=== PATIENT | male | born 1985 | race Caucasian/White ===

== ENCOUNTER 2018-12-15 15:35 | Emergency (ER) | payer MEDICAID, OTHER ==
[~2018-12-15] VITALS: Ht 172.7 cm; Wt 63.5 kg
--- NOTE | 2018-12-15 16:42 | NUR ---
Patient discharged to home in stable conditon. Written and verbal after care instructions given. Patient verbalizes understanding of instructions.
[2018-12-15 16:43] VITALS: BP 107/76
== END 2018-12-15 16:43 | disposition home or self-care (01) ==
LOC: ER 15:35
DX: S60.410A Abrasion of right index finger, initial encounter (principal); L08.9 Local infection of the skin and subcutaneous tissue, unspecified; X58.XXXA Exposure to other specified factors, initial encounter; Y93.89 Activity, other specified; Y92.89 Other specified places as the place of occurrence of the external cause; Y99.8 Other external cause status
CPT/HCPCS: A4663

== ENCOUNTER 2023-07-30 02:59 | Emergency (ER) | payer OTHER | END 2023-07-30 04:22 | disposition left against medical advice (07) | LOC: ER 03:13 | DX: Z53.21 Procedure and treatment not carried out due to patient leaving prior to being seen by health care provider (principal) ==

== ENCOUNTER 2024-12-01 11:03 | Emergency (ER) | payer OTHER ==
[~2024-12-01] VITALS: Ht 170.2 cm; Wt 65.8 kg
[2024-12-01] MEDS: IV NORMAL SALINE 1000 ML BAG IV ONE (11:25)
[2024-12-01] MEDS ORDERED: ONDANSETRON 4 MG/2 ML VIAL ONE (11:26)
[2024-12-01] MEDS: ONDANSETRON 4 MG/2 ML VIAL IV ONE (11:27)
[2024-12-01 11:36] LABS: BASOPHILS # (AUTO) 0.1 K/UL (0.0-0.2); BASOPHILS % (AUTO) 0.4 % (0.0-2.0); EOSINOPHILS # (AUTO) 0.1 K/uL (0.0-0.7); EOSINOPHILS % (AUTO) 0.8 % (0.0-7.0); HEMATOCRIT 42.1 % (36.7-47.1); HEMOGLOBIN 14.3 g/dL (12.5-16.3); LYMPHOCYTES # (AUTO) 1.3 K/uL (0.8-4.8); LYMPHOCYTES % (AUTO) 9.6 % (20.5-51.5); MEAN CORPUSCULAR HEMOGLOBIN 29.5 uug (23.8-33.4); MEAN CORPUSCULAR HGB CONC 34 g/dL (32.5-36.3); MEAN CORPUSCULAR VOLUME 86.7 fL (73.0-96.2); MONOCYTES # (AUTO) 0.7 K/uL (0.1-1.30); MONOCYTES % (AUTO) 5.3 % (0.0-11.0); NEUTROPHILS # (AUTO) 11.4 K/uL (1.8-8.9); NEUTROPHILS % (AUTO) 83.9 % (38.5-71.5); PLATELET COUNT (AUTO) 301 K/uL (152-348); RED BLOOD CELL COUNT(AUTO) 4.86 MIL/uL (4.06-5.63); RED CELL DISTRIBUTION WIDTH 12.8 % (12.1-16.2); WHITE BLOOD COUNT (AUTO) 13.6 K/uL (3.6-10.2)
[2024-12-01 11:38] LABS: DIFFERENTIAL COMMENT 1
[2024-12-01] MEDS ORDERED: ONDA4TAB5 PO (11:40)
[2024-12-01] MEDS ORDERED: FAMO-132 PO (11:40)
[2024-12-01 11:41] LABS: CALCIUM 9.2 mg/dL (8.5-10.1); POTASSIUM 3.3 mmol/L (3.5-5.1)
[2024-12-01 11:47] LABS: ALBUMIN 3.5 g/dL (3.4-5.0); BILIRUBIN,DIRECT 0.2 mg/dL (0.0-0.2); BILIRUBIN,TOTAL 0.6 mg/dL (0.2-1.0); TOTAL PROTEIN, SERUM 7.4 g/dL (6.4-8.2)
[2024-12-01 12:22] VITALS: BP 149/66; O2SAT 98
== END 2024-12-01 12:24 | disposition home or self-care (01) ==
LOC: ER 11:03
DX: R10.9 Unspecified abdominal pain (principal); R11.2 Nausea with vomiting, unspecified
CPT/HCPCS: 99283; 96374; 96361; 80076; 80048; 83690; 85025; 36415; J2405; J7040; A4606; A4663

== ENCOUNTER 2024-12-06 15:05 | Emergency (ER) | payer OTHER ==
[~2024-12-06] VITALS: Ht 170.2 cm; Wt 65.8 kg
[~2024-12-06 15:05] MED LIST: FAMO-132 PO; ONDA4TAB5 PO
[2024-12-06] MEDS ORDERED: ACET1TAB23 PO (16:40)
[2024-12-06] MEDS ORDERED: SULF1TAB48 PO (16:40)
[2024-12-06] MEDS ORDERED: CEPH500C2 PO (16:40)
[2024-12-06] MEDS ORDERED: SUMA100T PO (16:40)
[2024-12-06] MEDS ORDERED: ONDA4TAB5 PO (16:40)
[2024-12-06] MEDS ORDERED: NEOMY/BACITRA/POLYMYXIN B OINT UD PACKET TP ONE (16:41)
[2024-12-06 16:57] VITALS: BP 116/86; TEMP 98.1; O2SAT 99
== END 2024-12-06 16:58 | disposition home or self-care (01) ==
LOC: ER 15:12
DX: L08.89 Other specified local infections of the skin and subcutaneous tissue (principal); M79.645 Pain in left finger(s); G43.909 Migraine, unspecified, not intractable, without status migrainosus
CPT/HCPCS: A4606; A4663